=== PATIENT | female | born 1960 | race Caucasian/White ===

== ENCOUNTER 2018-11-11 08:41 | Emergency (ER) | payer MEDICAID | END 2018-11-11 10:10 | disposition home or self-care (01) | LOC: FTE 08:41 | DX: J40 Bronchitis, not specified as acute or chronic (principal) | CPT/HCPCS: 99283; Z7502 ==

== ENCOUNTER → 2019-05-23 | Emergency (ER) | payer MEDICAID ==
[2019-05-23] MEDS: IBUPROFEN 600 MG TAB PO (17:24)
== END | disposition home or self-care (01) ==
LOC: FTE 15:55
DX: R07.89 Other chest pain (principal)
CPT/HCPCS: 71046; 99283-25